=== PATIENT | male | born 1935 | race Asian ===

== ENCOUNTER → 2016-11-18 | Outpatient (CLI) | payer MEDICARE, OTHER ==
[~2016-11-18] MED LIST: OMNIPAQUE 350 MG/ML, 100ML BOTTLE ONE
== END | disposition home or self-care (01) ==
LOC: CFH 09:04
PROVIDERS: ATTEND Internal Medicine Cardiovascular Disease
DX: I71.2 Thoracic aortic aneurysm, without rupture (principal); E27.9 Disorder of adrenal gland, unspecified; M85.88 Other specified disorders of bone density and structure, other site; E07.9 Disorder of thyroid, unspecified; Q25.46 Tortuous aortic arch
CPT/HCPCS: 71275; 82565; Q9967

== ENCOUNTER 2016-11-27 10:36 | Inpatient (IN) | payer MEDICARE, OTHER ==
[~2016-11-27] VITALS: Ht 177.8 cm; Wt 91.8 kg
[2016-11-27] MEDS ORDERED: SODIUM CHLORIDE 0.9% 1,000 ML IV ONE (11:33)
[2016-11-27 12:14] LABS: ASPARTATE AMINO TRANSFERASE 28 U/L (15-37); BLOOD UREA NITROGEN 29 mg/dL (7-18)
[2016-11-27 12:18] LABS: IS PT STATUS REG ER OR PRE ER? YES
[2016-11-27] MEDS ORDERED: OMNIPAQUE 350 MG/ML, 100ML BOTTLE ONE (13:17)
[2016-11-27 18:00] VITALS: BP 150/77
[2016-11-27] MEDS ORDERED: ONDANSETRON 2MG/ML, 2ML IVPush PRN (18:00)
[2016-11-27] MEDS ORDERED: morphine SULFATE 10 MG/ML, 1ML IVPush PRN (18:00)
[2016-11-27] MEDS ORDERED: ACETAMINOPHEN 325 MG TABLET PO PRN (18:00)
[2016-11-27] MEDS ORDERED: ENALAPRILAT 1.25 MG/ML, 2ML IVPush PRN ×2 (18:00→18:58)
[2016-11-27] MEDS ORDERED: hydrALAzine 20 MG/ML, 1ML IVPush PRN (18:00)
[2016-11-27] MEDS ORDERED: DOCUSATE 100 MG CAPSULE PO PRN (18:00)
[2016-11-27] MEDS ORDERED: OXYcodone IR 5MG TABLET PO PRN (18:00)
[2016-11-27] MEDS ORDERED: BISACODYL 10 MG SUPP PR PRN (18:00)
[2016-11-27] MEDS ORDERED: POLYETHYLENE GLYCOL 17 GM PACKET PO PRN (18:00)
[2016-11-27] MEDS ORDERED: HYDR-3342 PO (18:28)
[2016-11-27] MEDS ORDERED: POTA10TA11 PO (18:28)
[2016-11-27] MEDS ORDERED: OMEP20TA2 PO (18:28)
[2016-11-27] MEDS ORDERED: SIMV20TA3 PO (18:28)
[2016-11-27] MEDS ORDERED: CARV-39 PO (18:28)
[2016-11-27] MEDS ORDERED: FURO20TA3 PO (18:28)
[2016-11-27] MEDS ORDERED: METF-650 PO (18:28)
[2016-11-27] MEDS ORDERED: SITA100T PO (18:41)
[2016-11-27] MEDS ORDERED: GLIP5TAB10 PO (18:53)
[2016-11-27] MEDS ORDERED: TRAV5DRO EACHEYE (18:53)
[2016-11-27] MEDS ORDERED: LOSA100T6 PO (18:53)
[2016-11-27] MEDS ORDERED: BRIM5DRO3 RIGHTEYE (18:53)
[2016-11-27 20:06] VITALS: BP 130/74
[2016-11-27] MEDS: metFORMIN XR 500 MG TAB.ER.24H PO SCH (21:00)
[2016-11-27] MEDS: HEPARIN 5,000 UNITS/ML, 1ML SQ SCH (21:05)
[2016-11-27] MEDS: CARVEDILOL 25 MG TABLET PO SCH (21:06)
[2016-11-27] MEDS: SIMVASTATIN 20 MG TABLET PO SCH (21:07)
[2016-11-27] MEDS: SODIUM CHLORIDE 0.9% 1,000 ML IV SCH (22:10)
[2016-11-28 03:00] VITALS: BP_SYST 153; BP_SYST 155; BP_SYST 157; BP_DIAS 75; BP_DIAS 81
[2016-11-28] MEDS ORDERED: PNEUMOCOCCAL 23 VACCINE IM-VACC ONE (04:00)
[2016-11-28] MEDS: HEPARIN 5,000 UNITS/ML, 1ML SQ SCH ×3 (05:00→20:33)
[2016-11-28 05:08] LABS: BLOOD UREA NITROGEN 26 mg/dL (7-18)
[2016-11-28 05:13] LABS: ASPARTATE AMINO TRANSFERASE 23 U/L (15-37)
[2016-11-28 06:45] VITALS: BP_SYST 146; BP_SYST 151; BP_SYST 153; BP_DIAS 70; BP_DIAS 78
[2016-11-28] MEDS: SODIUM CHLORIDE 0.9% 1,000 ML IV SCH (08:29)
[2016-11-28] MEDS: CARVEDILOL 25 MG TABLET PO SCH ×2 (08:33→20:34)
[2016-11-28] MEDS: OMEPRAZOLE 20 MG CAPSULE.DR PO SCH (08:33)
[2016-11-28] MEDS: metFORMIN XR 500 MG TAB.ER.24H PO SCH ×2 (08:34→20:34)
[2016-11-28] MEDS: TEMPLATE NON-FORMULARY MED. (Brimonidine Tartrate** (Alphagan P**) 1 DROP(S)) RIGHTEYE SCH ×2 (09:30→20:34)
[2016-11-28] MEDS: LOSARTAN 50MG TABLET PO SCH (13:34)
[2016-11-28] MEDS: SITAGLIPTIN 50MG TABLET PO SCH (13:35)
[2016-11-28 16:00] VITALS: BP 135/71
[2016-11-28 20:28] VITALS: BP 143/69
[2016-11-28] MEDS: SIMVASTATIN 20 MG TABLET PO SCH (20:34)
[2016-11-28] MEDS ORDERED: TRAVOPROST OPHTH 0.004%, 2.5ML EACHEYE SCH (21:00)
[2016-11-29 02:30] VITALS: BP_SYST 135; BP_SYST 147; BP_SYST 158; BP_DIAS 72; BP_DIAS 73; BP_DIAS 79
[2016-11-29] MEDS: HEPARIN 5,000 UNITS/ML, 1ML SQ SCH (05:21)
[2016-11-29 07:05] VITALS: BP 159/73
[2016-11-29] MEDS: LOSARTAN 50MG TABLET PO SCH (08:08)
[2016-11-29] MEDS: OMEPRAZOLE 20 MG CAPSULE.DR PO SCH (08:08)
[2016-11-29] MEDS: CARVEDILOL 25 MG TABLET PO SCH (08:08)
[2016-11-29] MEDS: metFORMIN XR 500 MG TAB.ER.24H PO SCH (08:08)
[2016-11-29] MEDS: SITAGLIPTIN 50MG TABLET PO SCH (08:08)
[2016-11-29] MEDS ORDERED: ERGOCALCIFEROL 50,000 UNIT CAPSULE PO SCH (11:30)
[2016-11-29] MEDS ORDERED: ERGO500017 PO (12:34)
[2016-11-29] MEDS ORDERED: ASPI-621 PO (21:44)
== END 2016-11-29 14:05 | disposition home or self-care (01) | DRG 314 ==
LOC: ED 11:05 → EDIP 13:47 → 5SO 16:27
PROVIDERS: ADMIT Internal Medicine; ATTEND Internal Medicine
DX: I95.89 Other hypotension (principal); N17.0 Acute kidney failure with tubular necrosis; R55 Syncope and collapse; E11.9 Type 2 diabetes mellitus without complications; E78.00 Pure hypercholesterolemia, unspecified; E78.5 Hyperlipidemia, unspecified; E86.0 Dehydration; I10 Essential (primary) hypertension; I35.1 Nonrheumatic aortic (valve) insufficiency; I45.9 Conduction disorder, unspecified; I65.23 Occlusion and stenosis of bilateral carotid arteries; I71.2 Thoracic aortic aneurysm, without rupture; K21.9 Gastro-esophageal reflux disease without esophagitis; Z79.82 Long term (current) use of aspirin; Z87.891 Personal history of nicotine dependence
CPT/HCPCS: 36415; 70551; 71010; 71275; 80053; 80061; 81003; 82306; 82607; 83036; 83735; 83880; 84439; 84443; 84484; 85025; 85610; 90732; 93005; 93880; 99285; J1644; Q9967; J7030

== ENCOUNTER → 2017-07-05 | Outpatient (CLI) | payer MEDICARE, OTHER ==
[~2017-07-05] MED LIST changes: +ASPI-621 PO; +BRIM5DRO3 RIGHTEYE; +CARV-39 PO; +ERGO500017 PO; +FURO20TA3 PO; +GLIP5TAB10 PO; +HYDR-3342 PO; +LOSA100T6 PO; +METF-650 PO; +OMEP20TA9 PO; +POTA10TA11 PO; +SIMV20TA3 PO; +SITA100T PO; +TRAV5DRO EACHEYE
== END | disposition home or self-care (01) ==
LOC: CFH 10:56
PROVIDERS: ATTEND Internal Medicine Cardiovascular Disease
DX: I77.810 Thoracic aortic ectasia (principal)
CPT/HCPCS: 71275; Q9967

== ENCOUNTER → 2018-10-28 | Outpatient (CLI) | payer MEDICARE, OTHER ==
[~2018-10-28] MED LIST changes: -ASPI-621 PO; +ASPI81TA45 PO; +LOSA100T14 PO; -LOSA100T6 PO; -OMNIPAQUE 350 MG/ML, 100ML BOTTLE ONE
== END | disposition home or self-care (01) ==
LOC: CVU 12:54
PROVIDERS: ATTEND Internal Medicine Cardiovascular Disease
DX: I08.2 Rheumatic disorders of both aortic and tricuspid valves (principal); E11.9 Type 2 diabetes mellitus without complications; I10 Essential (primary) hypertension
CPT/HCPCS: 93306

== ENCOUNTER 2019-04-11 02:16 | Inpatient (IN) | payer MEDICARE, OTHER ==
[~2019-04-11] VITALS: Ht 177.8 cm; Wt 89.2 kg
[2019-04-11] MEDS ORDERED: methylPREDNISolone SOD SUCC 125 MG/2 ML IVPush STA (02:19)
[2019-04-11] MEDS ORDERED: SODIUM CHLORIDE FLUSH 10ML SYR IVF ONE (02:30)
[2019-04-11 02:37] LABS: BASOPHILS # (AUTO) 0.01 x10^3/uL (0-0.1); BASOPHILS % (AUTO) 0 % (0-1); EOSINOPHILS # (AUTO) 0.63 x10^3/uL (0-0.4); EOSINOPHILS % (AUTO) 5 % (1-7); LYMPHOCYTES # (AUTO) 0.92 x10^3/uL (1-3.4); LYMPHOCYTES % (AUTO) 8 % (22-44); MD NO; MEAN CORPUSCULAR HEMOGLOBIN 30.2 pg (27.5-34.5); MEAN CORPUSCULAR HGB CONC 32.5 g/dL (33.2-36.2); MEAN CORPUSCULAR VOLUME 93.1 fL (81-97); MEAN PLATELET VOLUME 7.1 fL (7.4-10.4); MONOCYTES # (AUTO) 0.76 x10^3/uL (0.2-0.8); MONOCYTES % (AUTO) 6 % (2-9); NEUTROPHILS # (AUTO) 9.87 x10^3/uL (1.8-6.8); NEUTROPHILS % (AUTO) 81 % (42-75); PLATELET COUNT 217 x10^3/uL (130-400); RED BLOOD COUNT 4.93 x10^6/uL (4.38-5.82); RED CELL DISTRIBUTION WIDTH 12.8 % (9.4-14.8)
[2019-04-11] MEDS ORDERED: methylPREDNISolone SOD SUCC 125 MG/2 ML ONE (02:45)
[2019-04-11 02:51] LABS: ALANINE AMINOTRANSFERASE 31 U/L (12-78); ALBUMIN 4.3 g/dL (3.4-5.0); ANION GAP 6 mmol/L (5-15); CALCIUM 9.1 mg/dL (8.5-10.1); CHLORIDE 106 mmol/L (98-107); CREATININE 1.24 mg/dL (0.7-1.3)
--- NOTE | 2019-04-11 02:51 | NUR ---
PT MOVED TO TR03. PT A&OX4 AT THIS TIME. PT ABLE TO ASSIST IN REMOVING CLOTHING. SECOND IV STARTED, PT MEDICATED PER EMAR. PT PLACED ON BIPAP MACHINE WITH SETTINGS, 10/5 30% O2. LAB IN TO DRAW BLOOD, BLOOD CULTURES DONE. PT BANDED. WILL CONTINUE TO MONITOR.
[2019-04-11 02:54] LABS: RAPID INFLUENZA A Negative (Negative); RAPID INFLUENZA B Negative (Negative)
[2019-04-11 02:56] LABS: ALKALINE PHOSPHATASE 64 U/L (45-117); BILIRUBIN,TOTAL 0.4 mg/dL (0.2-1.0); TOTAL PROTEIN 7.9 g/dL (6.4-8.2); TROPONIN I < 0.015 ng/mL (0.000-0.045)
--- NOTE | 2019-04-11 03:20 | NUR ---
BIPAP REMOVED. PT ON 2L O2 PER N/C SATING 96%. PT EASILY AROUSED. WILL CONTINUE TO MONITOR. PT DOZING OFF AND ON. BILAT BEDRAILS UP.
--- NOTE | 2019-04-11 04:16 | NUR ---
PT CONTINUES TO REST CALMLY IN BED WITH EYES CLOSED. NO STATED NEEDS AT THIS TIME. RESP EVEN AND NON LABORED. PT AROUSES EASILY TO GENTLE STIMULI. BILAT BEDRAILS UP. WILL CONTINUE TO MONITOR.
[2019-04-11] MEDS ORDERED: ALBUTEROL/IPRATROPIUM 2.5MG/0.5MG, 3 ML NPPB PRN (04:30)
--- NOTE | 2019-04-11 04:40 | NUR ---
REPROT TO [facility]. PT UNSURE OF WHAT MEDS HE IS CURRENTLY TAKING AT HOME. UNABLE TO UPDATE MED REQ AT THIS TIME.
--- NOTE | 2019-04-11 04:41 | NUR ---
HOSPITALIST IN ROOM AT THIS TIME.
[2019-04-11] MEDS ORDERED: ERGOCALCIFEROL 50,000 UNIT CAPSULE PO SCH (05:00)
[2019-04-11] MEDS ORDERED: hydrALAzine 20 MG/ML, 1ML IVPush PRN (05:00)
[2019-04-11] MEDS ORDERED: ONDANSETRON 2MG/ML, 2ML IVPush PRN (05:00)
[2019-04-11] MEDS ORDERED: ACETAMINOPHEN 325 MG TABLET PO PRN (05:00)
[2019-04-11 05:02] VITALS: BP 125/70
[2019-04-11 06:40] VITALS: BP 144/73
[2019-04-11] MEDS: CARVEDILOL 25 MG TABLET PO SCH ×2 (08:20→20:18)
[2019-04-11] MEDS: LOSARTAN 50MG TABLET PO SCH (08:20)
[2019-04-11] MEDS: ASPIRIN 81 MG TABLET EC PO SCH (08:20)
[2019-04-11] MEDS: FUROSEMIDE 20 MG TABLET PO SCH (08:20)
[2019-04-11] MEDS: INSULIN LISPRO 100 UNITS/ML, PEN SQ-INSULIN SCH ×4 (08:35→20:19)
[2019-04-11 13:55] VITALS: BP 118/69
[2019-04-11] MEDS ORDERED: OMNIPAQUE 350 MG/ML, 100ML BOTTLE ONE (16:35)
[2019-04-11 18:55] VITALS: BP_SYST 121; BP_SYST 127; BP_DIAS 67
[2019-04-11] MEDS ORDERED: SIMVASTATIN 20 MG TABLET PO SCH (21:00)
[2019-04-11] MEDS ORDERED: TRAVOPROST OPHTH 0.004%, 2.5ML EACHEYE SCH (21:00)
[2019-04-12 00:35] VITALS: BP 122/63
[2019-04-12 05:13] LABS: BASOPHILS % (AUTO) 0 % (0-1); EOSINOPHILS % (AUTO) 0 % (1-7); LYMPHOCYTES # (AUTO) 0.69 x10^3/uL (1-3.4); LYMPHOCYTES % (AUTO) 7 % (22-44); MD NO; MEAN CORPUSCULAR HEMOGLOBIN 30.2 pg (27.5-34.5); MEAN CORPUSCULAR HGB CONC 32.7 g/dL (33.2-36.2); MEAN CORPUSCULAR VOLUME 92.3 fL (81-97); MEAN PLATELET VOLUME 7.4 fL (7.4-10.4); MONOCYTES # (AUTO) 0.63 x10^3/uL (0.2-0.8); MONOCYTES % (AUTO) 6 % (2-9); NEUTROPHILS # (AUTO) 9.22 x10^3/uL (1.8-6.8); NEUTROPHILS % (AUTO) 88 % (42-75); PLATELET COUNT 202 x10^3/uL (130-400); RED CELL DISTRIBUTION WIDTH 13.1 % (9.4-14.8)
[2019-04-12 05:21] LABS: ANION GAP 5 mmol/L (5-15); CALCIUM 8.1 mg/dL (8.5-10.1); CHLORIDE 107 mmol/L (98-107)
[2019-04-12 05:23] LABS: CREATININE 1.15 mg/dL (0.7-1.3)
[2019-04-12] MEDS: INSULIN LISPRO 100 UNITS/ML, PEN SQ-INSULIN SCH ×2 (07:46→11:38)
[2019-04-12] MEDS: ALBUTEROL/IPRATROPIUM 2.5MG/0.5MG, 3 ML NPPB SCH ×2 (08:00→10:05)
[2019-04-12] MEDS ORDERED: ENOXAPARIN 40 MG/0.4 ML SQ SCH (08:00)
[2019-04-12] MEDS ORDERED: methylPREDNISolone SOD SUCC 125 MG/2 ML IVPush SCH (08:00)
[2019-04-12] MEDS: ASPIRIN 81 MG TABLET EC PO SCH (08:02)
[2019-04-12] MEDS: LOSARTAN 50MG TABLET PO SCH (08:02)
[2019-04-12] MEDS: FUROSEMIDE 20 MG TABLET PO SCH (08:02)
[2019-04-12] MEDS: CARVEDILOL 25 MG TABLET PO SCH (08:03)
[2019-04-12 08:04] VITALS: BP 146/70
[2019-04-12] MEDS ORDERED: TIOT18CA INH (10:42)
[2019-04-12] MEDS ORDERED: ALBU90AE INH (10:42)
[2019-04-12] MEDS ORDERED: PRED20TA PO (13:16)
== END 2019-04-12 13:54 | disposition home or self-care (01) | DRG 189 ==
LOC: ED 03:38 → EDIP 04:02 → 4WST 04:57 → DCLOUNGE 04-12 13:15
PROVIDERS: ADMIT Internal Medicine; ATTEND Internal Medicine
PROC: 5A09357 Assistance with Respiratory Ventilation, Less than 24 Consecutive Hours, Continuous Positive Airway Pressure (ICD-10-PCS; principal; 2019-04-11)
DX: J96.01 Acute respiratory failure with hypoxia (principal); J44.1 Chronic obstructive pulmonary disease with (acute) exacerbation; I50.32 Chronic diastolic (congestive) heart failure; D72.829 Elevated white blood cell count, unspecified; E11.9 Type 2 diabetes mellitus without complications; E78.00 Pure hypercholesterolemia, unspecified; E78.5 Hyperlipidemia, unspecified; I11.0 Hypertensive heart disease with heart failure; Z87.891 Personal history of nicotine dependence
CPT/HCPCS: 36415; 36600; 71045; 71275; 80048; 80053; 80307; 82803; 82962; 83605; 83735; 83880; 84145; 84484; 85025; 85379; 87040; 87400; 93005; 93306; 94640; 94660; 96374; G0378; J1650; J7620; Q9967; J1815; J2930; J7512

== ENCOUNTER 2019-05-31 13:03 | Inpatient (IN) | payer MEDICARE, OTHER ==
[~2019-05-31] VITALS: Ht 167.6 cm; Wt 82.0 kg
[~2019-05-31 13:03] MED LIST changes: +ALBU90AE INH; +PRED20TA PO; +SIMV20TA19 PO; -SIMV20TA3 PO; +TIOT18CA INH
--- NOTE | 2019-05-31 13:45 | NUR ---
DR GUY BS FOR EXAM. VS & CARDIAC MONITORING IN PROGRESS. HOLTER MONITOR ON PT. PT A&OX4, RESP EVEN & UNLABORED. SPEECH CLEAR, SKIN WNL. C/O WEAKNESS. PT ATE BREAKSFAST TODAY, DENIES DARK STOOL TODAY, HX: DC. HX HTN, DM
[2019-05-31] MEDS ORDERED: SODIUM CHLORIDE 0.9% 1,000 ML IV ONE (13:50)
[2019-05-31] MEDS ORDERED: SERT-237 PO (13:56)
[2019-05-31] MEDS ORDERED: OMEP20CA20 PO (13:56)
[2019-05-31] MEDS ORDERED: OLME40TA22 PO (13:56)
[2019-05-31] MEDS ORDERED: AMLO5TAB10 PO (13:56)
[2019-05-31] MEDS ORDERED: HYDR-3342 PO (13:56)
[2019-05-31] MEDS ORDERED: LINA5TAB PO (13:56)
--- NOTE | 2019-05-31 14:07 | NUR ---
LABS DRAWN; BLC CX BAND ON PT WRIST
[2019-05-31 14:19] LABS: BASOPHILS # (AUTO) 0.03 x10^3/uL (0-0.1); BASOPHILS % (AUTO) 0 % (0-1); EOSINOPHILS # (AUTO) 0.11 x10^3/uL (0-0.4); EOSINOPHILS % (AUTO) 1 % (1-7); LYMPHOCYTES # (AUTO) 0.79 x10^3/uL (1-3.4); LYMPHOCYTES % (AUTO) 10 % (22-44); MD NO; MEAN CORPUSCULAR HEMOGLOBIN 29.4 pg (27.5-34.5); MEAN CORPUSCULAR VOLUME 89.2 fL (81-97); MEAN PLATELET VOLUME 7.2 fL (7.4-10.4); MONOCYTES % (AUTO) 5 % (2-9); NEUTROPHILS # (AUTO) 6.71 x10^3/uL (1.8-6.8); NEUTROPHILS % (AUTO) 84 % (42-75); PLATELET COUNT 241 x10^3/uL (130-400); RED CELL DISTRIBUTION WIDTH 13.3 % (9.4-14.8)
[2019-05-31 14:30] LABS: ALANINE AMINOTRANSFERASE 20 U/L (12-78); ALBUMIN 3.6 g/dL (3.4-5.0); ANION GAP 7 mmol/L (5-15); CALCIUM 8.4 mg/dL (8.5-10.1); CHLORIDE 105 mmol/L (98-107); CREATININE 1.27 mg/dL (0.7-1.3)
[2019-05-31 14:32] LABS: ALKALINE PHOSPHATASE 81 U/L (45-117); BILIRUBIN,TOTAL 0.4 mg/dL (0.2-1.0); TOTAL PROTEIN 6.7 g/dL (6.4-8.2)
--- NOTE | 2019-05-31 15:00 | NUR ---
URINAL PROVIDED TO PT.
--- NOTE | 2019-05-31 15:41 | NUR ---
PT UNABLE TO PRODUCE URINE SPECIMEN AT THIS TIME. ERP WILL BE NOTIFIED. NS INFUSING; SITE PATENT. CARDIAC & VS MONITORING CONTINUING. URINAL AT BS
--- NOTE | 2019-05-31 16:04 | NUR ---
PT ENDORSED TO BREAK RN. PT CARE TRANSFERRED.
--- NOTE | 2019-05-31 16:10 | NUR ---
OOB TO ATTEMPT TO GIVE UA. UNSUCCESSFUL. RETURN TO BED, VSS, CALLBELL IN REACH.
[2019-05-31] MEDS ORDERED: ACETAMINOPHEN 500 MG TABLET ONE (16:18)
--- NOTE | 2019-05-31 16:25 | NUR ---
1L NS COMPLETE-PRIMARY RN MADE AWARE STRAIGHT CATHERIZED FOR URINE SAMPLE
[2019-05-31] MEDS ORDERED: ACETAMINOPHEN 325 MG TABLET PO ONE (16:30)
[2019-05-31 16:54] LABS: MICROSCOPIC NOT IND
--- NOTE | 2019-05-31 17:01 | NUR ---
TYLENOL PER JUL FOR WEAVER. PT TOLD OTHER RN THAT HE FELL LAST WEEK AND HIT HIS HEAD WILL NOTIFY
--- NOTE | 2019-05-31 18:15 | NUR ---
RESTING QUIETLY ON GURNEY, STATES HE FEELS A LITTLE BETTER. INFORMED PT OF PENDING ADMISSION. SIDE RAILS UP X2, BEAR PAW WARMER IN USE, CALL LIGHT W/IN REACH, VS & CARDIAC MONITORING CONTINUING.
[2019-05-31] MEDS ORDERED: ONDANSETRON ODT 4 MG PO PRN (19:00)
[2019-05-31] MEDS ORDERED: TEMPLATE NON-FORMULARY MED. (Brimonidine Tartrate** (Alphagan P**) 1 DROP(S)) RIGHTEYE SCH (19:00)
[2019-05-31] MEDS ORDERED: ACETAMINOPHEN 325 MG TABLET PO PRN (19:00)
[2019-05-31] MEDS ORDERED: POLYETHYLENE GLYCOL 17 GM PACKET PO PRN (19:00)
[2019-05-31] MEDS ORDERED: BISACODYL 10 MG SUPP PR PRN (19:00)
[2019-05-31] MEDS ORDERED: HEPARIN 5,000 UNITS/ML, 1ML ONE (19:12)
[2019-05-31] MEDS: HEPARIN 5,000 UNITS/ML, 1ML SQ SCH (19:17)
--- NOTE | 2019-05-31 19:17 | NUR ---
PT DOZING ON BED, EASILY AWAKENED. HEPARIN GIVEN PER EMAR.
[2019-05-31] MEDS ORDERED: AMLODIPINE 5 MG TABLET PO SCH (21:00)
[2019-05-31] MEDS ORDERED: TRAVOPROST OPHTH 0.004%, 2.5ML EACHEYE SCH (21:00)
[2019-05-31] MEDS ORDERED: PLEASE ENTER HEIGHT AND WEIGHT MC SCH (21:00)
[2019-05-31] MEDS: SODIUM CHLORIDE FLUSH 10ML SYR IVF SCH (21:00)
[2019-05-31] MEDS ORDERED: SIMVASTATIN 20 MG TABLET PO SCH (21:00)
--- NOTE | 2019-05-31 21:18 | NUR ---
FLOOR MEDS ORDERED FROM PHARMACY
--- NOTE | 2019-05-31 21:24 | NUR ---
PT REPORT TO ANNIE SANDHU FOR ROOM [phone]
[2019-05-31 21:53] VITALS: BP 119/69
[2019-05-31] MEDS ORDERED: ALBUTEROL/IPRATROPIUM 2.5MG/0.5MG, 3 ML NPPB PRN (22:00)
[2019-05-31] MEDS: CARVEDILOL 25 MG TABLET PO SCH (22:40)
[2019-06-01] VITALS (7 sets, daily range): BP systolic 102–136; BP diastolic 59–74
[2019-06-01] MEDS: HEPARIN 5,000 UNITS/ML, 1ML SQ SCH ×2 (02:44→11:10)
[2019-06-01 05:59] LABS: BASOPHILS # (AUTO) 0.03 x10^3/uL (0-0.1); BASOPHILS % (AUTO) 0 % (0-1); EOSINOPHILS # (AUTO) 0.29 x10^3/uL (0-0.4); EOSINOPHILS % (AUTO) 4 % (1-7); LYMPHOCYTES # (AUTO) 1.26 x10^3/uL (1-3.4); LYMPHOCYTES % (AUTO) 18 % (22-44); MD NO; MEAN CORPUSCULAR HEMOGLOBIN 29.6 pg (27.5-34.5); MEAN CORPUSCULAR HGB CONC 33.1 g/dL (33.2-36.2); MEAN CORPUSCULAR VOLUME 89.4 fL (81-97); MEAN PLATELET VOLUME 7.7 fL (7.4-10.4); MONOCYTES # (AUTO) 0.51 x10^3/uL (0.2-0.8); MONOCYTES % (AUTO) 7 % (2-9); NEUTROPHILS # (AUTO) 5.11 x10^3/uL (1.8-6.8); NEUTROPHILS % (AUTO) 71 % (42-75); PLATELET COUNT 223 x10^3/uL (130-400); RED BLOOD COUNT 4.29 x10^6/uL (4.38-5.82)
[2019-06-01 06:03] LABS: ALBUMIN 3.1 g/dL (3.4-5.0); ANION GAP 6 mmol/L (5-15); CALCIUM 8.3 mg/dL (8.5-10.1); CHLORIDE 109 mmol/L (98-107)
[2019-06-01 06:08] LABS: BILIRUBIN,TOTAL 0.7 mg/dL (0.2-1.0); CREATININE 0.97 mg/dL (0.7-1.3)
[2019-06-01 06:09] LABS: ALANINE AMINOTRANSFERASE 13 U/L (12-78); ALKALINE PHOSPHATASE 60 U/L (45-117); TOTAL PROTEIN 5.9 g/dL (6.4-8.2)
[2019-06-01] MEDS ORDERED: OMEPRAZOLE 20 MG CAPSULE.DR PO SCH (09:00)
[2019-06-01] MEDS ORDERED: SERTRALINE 50MG TABLET PO SCH (09:00)
[2019-06-01] MEDS ORDERED: SENNA/DOCUSATE TABLET PO SCH (09:00)
[2019-06-01] MEDS ORDERED: ASPIRIN 81 MG TABLET EC PO SCH (09:00)
[2019-06-01] MEDS ORDERED: LOSARTAN 50MG TABLET PO SCH (09:00)
[2019-06-01] MEDS ORDERED: TEMPLATE NON-FORMULARY MED. (Tiotropium Bromide** (Spiriva**) 18 MCG) INH SCH (09:00)
[2019-06-01] MEDS ORDERED: LINAGLIPTIN 5 MG TAB PO SCH (09:00)
[2019-06-01] MEDS: CARVEDILOL 25 MG TABLET PO SCH (09:36)
[2019-06-01] MEDS: SODIUM CHLORIDE FLUSH 10ML SYR IVF SCH (09:36)
== END 2019-06-01 16:09 | disposition home or self-care (01) | DRG 640 ==
LOC: ED 18:08 → EDIP 18:09 → 4EST 21:48 → DCLOUNGE 06-01 16:08
PROVIDERS: ADMIT Internal Medicine; ATTEND Internal Medicine
DX: E86.0 Dehydration (principal); G93.41 Metabolic encephalopathy; E78.5 Hyperlipidemia, unspecified; I10 Essential (primary) hypertension; K21.9 Gastro-esophageal reflux disease without esophagitis; J44.9 Chronic obstructive pulmonary disease, unspecified; E11.9 Type 2 diabetes mellitus without complications; E78.00 Pure hypercholesterolemia, unspecified; R55 Syncope and collapse; I35.8 Other nonrheumatic aortic valve disorders; I77.819 Aortic ectasia, unspecified site; Z66 Do not resuscitate; Z82.3 Family history of stroke; Z83.3 Family history of diabetes mellitus; Z86.73 Personal history of transient ischemic attack (TIA), and cerebral infarction without residual deficits; Z87.891 Personal history of nicotine dependence
CPT/HCPCS: 36415; 70450; 71045; 80053; 81003; 83036; 83605; 85025; 87040; 93005; 93880; 99285; G0378; J1644; J7030

== ENCOUNTER → 2020-09-10 | Outpatient (CLI) | payer MEDICARE, OTHER ==
[~2020-09-10] MED LIST changes: +AMLO-210 PO; +LINA5TAB PO; -METF-650 PO; +METF-735 PO; +OLME40TA22 PO; +OMEP20CA20 PO; +OMNIPAQUE 350 MG/ML, 100ML BOTTLE ONE; +SERT-237 PO
== END | disposition home or self-care (01) ==
LOC: CFH 13:47
PROVIDERS: ATTEND Internal Medicine Cardiovascular Disease
DX: I71.2 Thoracic aortic aneurysm, without rupture (principal); I25.10 Atherosclerotic heart disease of native coronary artery without angina pectoris; M48.54XA Collapsed vertebra, not elsewhere classified, thoracic region, initial encounter for fracture; M51.34 Other intervertebral disc degeneration, thoracic region; E04.1 Nontoxic single thyroid nodule
CPT/HCPCS: 71275; Q9967